=== PATIENT | male | born 1995 | race Hispanic/Latino ===

== ENCOUNTER 2022-12-05 19:51 | Emergency (ER) | payer OTHER, SELFPAY ==
[2022-12-05] VITALS (46 sets, daily range): BP systolic 110–213; BP diastolic 54–110; PULSE 67–135; RESP 11–34; TEMP 37.1; O2SAT 93–100; BMI 26.3
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
[2022-12-05 20:08] LABS: Add Manual Diff / Slide Review NO; Basophils Absolute Auto 200 /uL (0-100); Basophils Percent Auto 0.8 % (0-2); Eosinophils Absolute Auto 100 /uL (0-450); Eosinophils Percent Auto 0.3 % (2-4); Hematocrit 42.8 % (41-53); Hemoglobin 14.5 g/dL (13.5-17.5); Lymphocytes Absolute Auto 3500 /uL (1100-4500); Mean Corpuscular Volume 94.3 fL (80-100); Monocytes Absolute Auto 1100 /uL (0-900); Monocytes Percent Auto 5.5 % (3-14); Neutrophils Absolute Auto 14500 /uL (1500-7000); Neutrophils Percent Auto 75.4 % (50-75); Platelet Count 284 X10^3/uL (150-400); Red Blood Cell Count 4.53 X10^6/uL (4.5-5.9); Red Cell Distribution Width 13.5 % (11.6-14.8); White Blood Cell Count 19.3 X10^3/uL (4.5-11.0)
[2022-12-05] MEDS: LORazepam 2 MG/ML INJ 1 MG IV ×2 (20:10→20:48)
[2022-12-05 20:23] LABS: Alanine Aminotransferase 40 IU/L (<50); Albumin 4.6 g/dL (3.5-5.0); Albumin Globulin Ratio 1.5 (1.0-2.8); Alkaline Phosphatase 80 U/L (38-126); Aspartate Aminotransferase 72 IU/L (17-59); Bilirubin Total 0.5 mg/dL (0.2-1.3); Blood Urea Nitrogen 16 mg/dL (9-20); Calcium 9.2 mg/dL (8.4-10.2); Carbon Dioxide 22 mmol/L (22-32); Chloride 100 mmol/L (98-107); Estimated Glomerular Filt Rate > 60 mL/min (>60); Ethanol (ETOH) 118 mg/dL; Glucose 152 mg/dL (70-100); HEMOLYSIS < 15 (0-50); Lipase 77 U/L (23-300); Potassium 3.6 mmol/L (3.4-5.1); Sodium 134 mmol/L (137-145); Total Protein 7.6 g/dL (6.3-8.2)
[2022-12-05] MEDS: fentaNYL 100 MCG/2 ML INJ 50 MCG IV ×5 (20:31→22:22)
[2022-12-05] MEDS: ETOMIDATE 2 MG/ML 10 ML VIAL 20 MG IV (21:08)
[2022-12-05] MEDS: SUCCINYLCHOLINE 200 MG/10 ML VIAL 120 MG IV (21:08)
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
[2022-12-05] MEDS: propofoL 1,000 MG/100 ML VIAL 2.22 MG IV (21:16)
[2022-12-05] MEDS: MIDAZOLAM 50 MG in DEXTROSE 5 % IN WATER 40 ML IV (21:19)
[2022-12-05] MEDS: SODIUM CHLORIDE 0.9% 1,000 ML 125 ML IV (21:32)
[2022-12-05 21:35] LABS: Appearance Urine UA CLEAR; Bilirubin Urine UA NEGATIVE (NEGATIVE); Color Urine UA YELLOW; Glucose Urine UA NEGATIVE (Negative); Ketones Urine UA TRACE (NEGATIVE); Leukocyte Esterase Urine UA NEGATIVE (NEGATIVE); Nitrite Urine UA NEGATIVE (Negative); Occult Blood Urine UA 3+ (Negative); Protein Urine UA 2+ (Negative); Specific Gravity Urine UA 1.025 (1.000-1.035); Urobilinogen Urine UA 0.2 E.U./dL (0.2)
[2022-12-05 21:38] LABS: UR Morphine/Opiate cutoff 300 Negative (Negative); Ur Creatinine Normal (Normal); Ur Specific Gravity Normal (Normal); Urine Amphetamines Negative (Negative); Urine Barbiturates Negative (Negative); Urine Benzodiazepines Positive (Negative); Urine Cocaine Positive (Negative); Urine MDMA Negative (Negative); Urine Methadone Negative (Negative); Urine Methamphetamines Negative (Negative); Urine Oxycodone Negative (Negative); Urine Phencyclidine Negative (Negative); Urine Tetrahydrocannabinol Positive (Negative); Urine Tricyclic Antidepressant Negative (Negative); Urine pH Normal (Normal)
[2022-12-05 21:43] LABS: Amorphous Sediment Urine 1+; Bacteria Urine Occasional (0-1); Culture Indicated Urine Cult Not Indicated; Mucus Urine 1+ (Negative); RBC Urine 5-10/HPF (0-5/HPF); Squamous Epithelial Cell Urine None Seen (0-5/HPF); WBC Urine 1-5/HPF (0-5/HPF)
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
[2022-12-05] MEDS: SODIUM CHLORIDE 0.9% 1,000 ML 1000 ML IV (22:07)
[2022-12-05] MEDS: HYDROMORPHONE 1 MG INJ IV ×2 (22:28→23:58)
--- NOTE | 2022-12-05 22:51 | RT ---
Patient is on AC/VC 450ml RR15 +8 21% ABG 7.34/CO2:37/PO2:65/HCO3:20 ETT:7.5 27@Teeth @2252 Increased PEEP 10 Fio2 40% due to ABG MD is notifed.
[2022-12-05 22:56] LABS: COVID19 -Nasal RAPID Negative (Negative)
--- NOTE | 2022-12-05 23:50 | PC.NURSE ---
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
[2022-12-06] VITALS: PULSE 111; RESP 17; O2SAT 98
[2022-12-06 00:05] VITALS: PULSE 108; RESP 20; O2SAT 98
[2022-12-06 05:47] LABS: Fractionated Inspired Oxygen 21; HCO3 ABG 20 mmol/L (23-27); Oxygen Saturation ABG 91 % (95-100); PCO2 ABG 37.2 mmHg (35-45); PO2 ABG 65 mmHg (80-100); TCO2 ABG 21 mmol/L (23-27); pH ABG 7.34 (7.35-7.45)
== END 2022-12-06 00:23 | disposition short-term general hospital (02) ==
PROVIDERS: Emergency Provider Emergency Medicine
DX: S06.5XAA Traumatic subdural hemorrhage with loss of consciousness status unknown, initial encounter (principal); S12.9XXA Fracture of neck, unspecified, initial encounter; S27.899A Unspecified injury of other specified intrathoracic organs, initial encounter; S22.41XA Multiple fractures of ribs, right side, initial encounter for closed fracture; S12.500A Unspecified displaced fracture of sixth cervical vertebra, initial encounter for closed fracture; S12.600A Unspecified displaced fracture of seventh cervical vertebra, initial encounter for closed fracture; S06.309A Unspecified focal traumatic brain injury with loss of consciousness of unspecified duration, initial encounter; S27.892A Contusion of other specified intrathoracic organs, initial encounter; Z20.822 Contact with and (suspected) exposure to COVID-19; V29.99XA Rider (driver) (passenger) of other motorcycle injured in unspecified traffic accident, initial encounter
CPT/HCPCS: 31500; 36415; 36600; 70450; 71045; 71260; 72125; 74177; 80053; 80305; 80320; 81001; 82805; 83690; 85025; 87635; 94002; 94003; 94799; 96374; 96375; 96376; 99152; 99153; 99285; 99291; 99292; C9803; G0390; J0330; J1170; J2060; J2250; J2704; J3010; Q9967